=== PATIENT | male | born 1990 | race American Indian/Alaskan Native ===

== ENCOUNTER 2016-07-27 16:00 | Emergency (ER) | payer BC ==
[2016-07-27 16:19] VITALS: TEMP 98.3
[2016-07-27 16:28] LABS: BASO # 0.1 K/uL (0.0-0.2); BASO % 0.4 % (0.0-2.0); EOS # 0.1 K/uL (0.0-0.7); EOS % 0.4 % (0.0-4.0); HEMATOCRIT 42.5 % (35.0-51.0); LYMPH # 1.6 K/uL (1.0-4.3); LYMPH % 8.2 % (20.0-40.0); MEAN CELL VOLUME 84.2 fL (80.0-94.0); MEAN CORPUSCULAR HEMOGLOBIN 27.3 pg (27.0-31.0); MEAN CORPUSCULAR HGB CONC 32.4 g/dL (33.0-37.0); MEAN PLATELET VOLUME 7.1 fL (7.2-11.7); MONO # 1.8 K/uL (0.0-0.8); MONO % 9.8 % (0.0-10.0); PLATELET COUNT 292 K/uL (130-400); RED CELL DISTRIBUTION WIDTH 12.5 % (11.5-14.5); WHITE BLOOD COUNT 18.9 K/uL (4.8-10.8)
--- NOTE | 2016-07-27 16:38 | C.PDOC ---
History Of Present Illness 26-year-old male, presents to the emergency department s/p syncopal episode. Patient states he was drinking heavily with friends last night. When he woke up this morning, he did not have anything to eat or drink. [place] was [place] [employer] and developed light headedness, associated with nausea, shortness of breath , resulting in him having a syncopal episode. When he woke up, he notes two people were helping him up. States he fell, but did not sustain any injuries. Denies vomiting, back pain, headaches, neck pain or any other associated symptoms. No other complaints at this time. Time Seen by Provider: 07/27/16 16:16 Chief Complaint (Nursing): Syncope History Per: Patient History/Exam Limitations: no limitations Past Medical History Reviewed: Historical Data, Nursing Documentation, Vital Signs Vital Signs: Last Vital Signs Temp 98.3 F 07/27/16 16:11 Pulse 100 H 07/27/16 17:58 Resp 20 07/27/16 17:58 BP 118/71 07/27/16 17:58 Pulse Ox 100 07/27/16 17:58 Family History: States: Unknown Family Hx - Social History Hx Alcohol Use: Yes Hx Substance Use: No - Immunization History Hx Tetanus Toxoid Vaccination: No Hx Influenza Vaccination: No Hx Pneumococcal Vaccination: No Review Of Systems Except As Marked, All Systems Reviewed And Found Negative. Constitutional: Negative for: Fever, Chills, Weakness Eyes: Negative for: Vision Change Respiratory: Positive for: Shortness of Breath Gastrointestinal: Positive for: Nausea. Negative for: Vomiting Skin: Negative for: Rash Neurological: Positive for: Dizziness, Other (syncope). Negative for: Weakness , Numbness Physical Exam - Physical Exam Appears: Non-toxic, No Acute Distress Skin: Warm, Dry, No Rash Head: Atraumatic, Normacephalic Eye(s): bilateral: Normal Inspection, PERRL Nose: Normal Oral Mucosa: Moist Lips: Normal Appearing Neck: Normal ROM Cardiovascular: Rhythm Regular Respiratory: Normal Breath Sounds, No Accessory Muscle Use Back: Normal Inspection Extremity: Normal ROM Neurological/Psych: Oriented x3, Normal Speech ED Course And Treatment - Laboratory Results Result Diagrams: 07/27/16 16:24 07/27/16 16:24 Lab Interpretation: Abnormal (WBC 18.9, ETOH 45) ECG: Interpreted By Me ECG Rhythm: Sinus Rhythm ECG Interpretation: No Acute Changes O2 Sat by Pulse Oximetry: 99 Pulse Ox Interpretation: Normal Reevaluation Time: 18:20 Reassessment Condition: Improved (after IV fluids and rest.) Disposition Counseled Patient/Family Regarding: Studies Performed, Diagnosis, Need For Followup - Disposition Referrals: [facility] [Outside] Disposition: HOME/ ROUTINE Disposition Time: 18:20 Condition: IMPROVED Instructions: Syncope (ED) - Clinical Impression Clinical Impression: Syncope - Scribe Statement The provider has reviewed the documentation as recorded by the Pepeibpatricio Nguyen All medical record entries made by the Pepeibe were at my direction and personally dictated by me. I have reviewed the chart and agree that the record accurately reflects my personal performance of the history, physical exam, medical decision making, and the department course for this patient. I have also personally directed, reviewed, and agree with the discharge instructions and disposition.
[2016-07-27 16:39] LABS: CHLORIDE 102 mmol/L (98-107); POTASSIUM 3.7 mmol/L (3.6-5.2); SODIUM 139 mmol/L (132-148)
[2016-07-27 16:41] LABS: ALB/GLOB RATIO 1.2 (1.0-2.1); AST/SGOT 25 U/L (17-59); BILIRUBIN,TOTAL 1.2 mg/dL (0.2-1.3); CARBON DIOXIDE 23 mmol/L (22-30); GFR AFRICAN-AMERICAN > 60; TOTAL PROTEIN 7.7 g/dL (6.3-8.3)
[2016-07-27 16:42] LABS: ALCOHOL SERUM 45 mg/dl (0-10); ALKALINE PHOSPHATASE 66 U/L (38-126); ALT/SGPT 20 U/L (21-72); BLOOD UREA NITROGEN 12 mg/dL (9-20); CALCIUM 8.8 mg/dl (8.6-10.4); GLUCOSE,RANDOM 81 mg/dL (75-110)
[2016-07-27] MEDS ORDERED: Sodium Chloride 0.9% 1,000 ML IV ONE (16:45)
[2016-07-27 16:50] LABS: NEUTROPHIL 75 % (50-75); TOTAL CELLS COUNTED 100
[2016-07-27 16:51] LABS: LARGE PLATELETS PRESENT
[2016-07-27 17:58] VITALS: BP 118/71; PULSE 100; RESP 20
[2016-07-27 18:21] VITALS: O2SAT 99
--- NOTE | 2016-07-29 15:46 | CARD ---
APPROVED REPORT EKG Measurement Heart [id number] <Conclusion> Normal sinus rhythm Possible Left atrial enlargement Borderline ECG
== END 2016-07-27 18:41 | disposition home or self-care (01) ==
LOC: C.ER 16:00
DX: R55 Syncope and collapse (principal)
CPT/HCPCS: 80053; 82948; 85025; 93005; 96360; 99285; G0480; J7040